=== PATIENT | female | born 1975 | race Caucasian/White ===

== ENCOUNTER 2017-01-24 21:47 | Emergency (ER) | payer OTHER ==
[~2017-01-24] VITALS: Ht 152.4 cm; Wt 58.1 kg
[2017-01-24 21:51] VITALS: TEMP 36.5; Ht 152.4 cm; Wt 58.1 kg
[2017-01-24] MEDS ORDERED: ACET-1256 PO (22:03)
[2017-01-24] MEDS ORDERED: IBUP-103 PO (22:03)
[2017-01-24] MEDS ORDERED: PENI500T2 PO (22:06)
[2017-01-24] MEDS ORDERED: HYDR-5688 PO (22:06)
--- NOTE | 2017-01-24 22:07 | EMERGENCY ROOM VISIT NOTE ---
ED Visit Note First contact with patient: 21:56 CHIEF COMPLAINT: Toothache. HISTORY OF PRESENT ILLNESS: This is a 41-year-old white female who ambulates into the complaining of dental pain. She reports a progressive dental pain for the last 4 days over the left upper molars. The pain is now steady and severe and radiates to the face. She has tried Orajel, ibuprofen and Tylenol but has had moderate relief of her discomfort but tonight the pain became severe. The patient is taking 5 200 mg ibuprofen at a time. I did financial counselor her on the appropriate dosage of ibuprofen. Currently she is complaining of pain in the area of tooth . She rates her discomfort 8/10. Her.is pain does radiate through the teeth. Her/is pain worsens with chewing and hot and cold foods. She has not identified any alleviating factors related to the pain. She denies any associated symptoms including fevers, chills, sweats, facial swelling, sore throat, difficulty swallowing, voice changes, drooling. REVIEW OF SYSTEMS: As noted above in History of Present Illness. 8 body systems were reviewed with this patient and found to be negative unless noted above otherwise. PMH: . CURRENT MEDICATION: . ALLERGIES TO MEDICATION: Patient denies. SOCIAL HISTORY: PHYSICAL EXAM: Vital Signs: Temperature 36.5 C orally; blood pressure ; heart rate ; respiratory rate . General: This is a 41-year-old year-old white female in mild distress due to pain, nontoxic appearing, afebrile and hemodynamically stable. Neurological: Awake, alert and oriented to person, place and time. Answering questions appropriately and following commands. Normal gait. Good hand eye coordination. No focal motor or sensory deficits. Skin: Warm, dry and pink. No soft tissue lesions, rashes, or trauma noted. HEENT: Atraumatic and normocephalic. Oral cavity is moist and pink. Airway is patent. Uvula is midline and no abscesses are seen. Airway is patent. Speech is normal. No drooling. No intraoral trauma is noted. There is decay and a filling in the left upper molar. It is broken. No abscesses, erythema or edema identified. No cervical or submandibular lymphadenopathy. ED COURSE: Patient is assessed as noted above. Patient is educated about his findings and instructed on her treatment plan; she verbalizes understanding and agreement with this plan. CLINIC IMPRESSION: Dental pain. Current/Historical Medications Scheduled Penicillin V Potassium (Veetids), 500 MG PO QID Scheduled PRN Acetaminophen (Tylenol), 1,000 MG PO UD PRN for Pain Hydrocodone/Acetaminophen 5MG/325MG ([place] 5MG/325MG), 1 TABLET PO Q4H PRN for Pain Ibuprofen Tab (Advil), 600-1,000 MG PO UD PRN for Pain Allergies Coded Allergies: No Known Allergies (Unverified , 01/24/17) Vital Signs Date Time Temp Pulse Resp B/P Pulse Ox O2 Delivery O2 Flow Rate FiO2 01/24/17 22:23 88 18 115/76 99 Room Air 01/24/17 21:51 36.5 90 16 118/56 99 Room Air Medications Administered Medications (Trade) Dose Ordered Sig/Deon Route Start Time Stop Time Status Last Admin Dose Admin Acetaminophen/ Hydrocodone Bitart ([place] 5/325mg Home Pack) 1 homepack UD ONCE PO 01/24/17 22:15 01/24/17 22:16 DC 01/24/17 22:18 1 HOMEPACK Penicillin V Potassium (Pen-Vk 250MG Home Pack) 1 homepack UD ONCE PO 01/24/17 22:15 01/24/17 22:16 DC 01/24/17 22:18 1 HOMEPACK Departure Information Impression Primary Impression: Dental caries Additional Impression: Pain, dental Dispostion Home / Self-Care Condition GOOD Prescriptions Penicillin V Potassium (VEETIDS) 500 Mg Tab 500 MG PO QID, #40 TAB Prov: Jenny Beaulieu PA-C 01/24/17 Hydrocodone/Acetaminophen 5MG/325MG ([place] 5MG/325MG) Tab 1 TABLET PO Q4H Y for Pain, #18 TAB For Initial Treatment Prov: Jenny Beaulieu PA-C 01/24/17 Referrals No Doctor, Assigned (PCP) Patient Instructions [facility] Additional Instructions Pen-Vee K 4 times daily for 10 days.[place] one tablet every 6 hours if needed for worse pain. Do not drink or drive while taking [place] and do not take with Tylenol. Followup with a dentist for definitive management of your tooth. Return with high fevers, worsening pain or swelling. Do not take more than 600 mg of ibuprofen every 6-8 hours Do not take more than 4 g of Tylenol in 24 hours Follow up with your dentist on Wednesday as scheduled Problem Qualifiers
[2017-01-24] MEDS ORDERED: NORCO 5/325MG HOME PACK PO ONE (22:15)
[2017-01-24] MEDS ORDERED: PENICILLIN HOME PACK 250MG (4)BTL PO ONE (22:15)
[2017-01-24 22:23] VITALS: BP 115/76; PULSE 88; O2SAT 99
== END 2017-01-24 22:24 | disposition home or self-care (01) ==
LOC: C.EDB 21:49 → C.EDD 22:24
DX: K02.9 Dental caries, unspecified (principal); K08.89 Other specified disorders of teeth and supporting structures

== ENCOUNTER 2017-08-30 12:14 | Emergency (ER) | payer OTHER ==
[~2017-08-30] VITALS: Ht 152.4 cm; Wt 57.2 kg
[~2017-08-30 12:14] MED LIST: ACET-1256 PO; IBUP-103 PO
[2017-08-30 12:20] VITALS: TEMP 36.8; Ht 152.4 cm; Wt 57.2 kg
[2017-08-30] MEDS ORDERED: IBUP-103 PO (12:38)
--- NOTE | 2017-08-30 13:15 | DIAGNOSTIC IMAGING REPORT ---
R HAND MIN 3 VIEWS ROUTINE CLINICAL HISTORY: Right hand closed in car door. 4th/5th finger injury. COMPARISON: None FINDINGS: There is an acute mildly displaced transverse fracture within the distal shaft of the distal phalanx of the right fifth finger. There is suspected subtle malalignment at the proximal interphalangeal joint of the fourth digit which may reflect mild dorsal subluxation with respect to the proximal phalanx. No additional fractures are present. Carpal bones are intact. IMPRESSION: 1. Acute mildly displaced transverse fracture of the distal phalanx of the right fifth finger. 2. Suspected mild malalignment of the proximal interphalangeal joint of the right fourth digit which suggests mild subluxation. Electronically signed by: Sunny Parker M.D. 08/30/2017 1:14 PM Dictated Date/Time: 08/30/2017 1:10 PM
[2017-08-30] MEDS ORDERED: HYDR-5688 PO (13:31)
[2017-08-30 13:47] VITALS: BP 135/83; PULSE 76; O2SAT 99
--- NOTE | 2017-08-31 07:55 | EMERGENCY ROOM VISIT NOTE ---
History First contact with patient: 12:23 Chief Complaint: FINGER PAIN Stated Complaint: INJURY TO RT HAND, 4TH/5TH DIGITS, PAIN INTO ELBOW History of Present Illness The patient is a 42 year old female who presents to the Emergency Room with complaints of pain to her right hand after closing it in a car door approximately 10 hours ago. The patient initially did not have significant pain , however as time has advanced she now has worsening pain into her fourth and fifth digits. The pain does radiate into her elbow. She is able to move the hand and does not have laceration or abrasion. The patient considers herself usually healthy, but does have an upcoming orthopedic appointment in 2 days for trigger finger release. This appointment is scheduled in [facility] as discussed with the patient lives. She is visiting locally to the area and staying with her brother. The patient rates the discomfort an increasing 8/10. She has not had relief of pain with [id number] analgesics. Review of Systems More than 10 systems were reviewed and otherwise negative with the exception of history of present illness. Past Medical/Surgical History No additional pertinent chronic medical disease Family History No pertinent family history Social History Smoking Status: Light Tobacco Smoker Occupation Status: employed Current/Historical Medications Scheduled PRN Hydrocodone/Acetaminophen 5MG/325MG ([place] 5MG/325MG), 1-2 TABLET PO Q6 PRN for Pain Ibuprofen Tab (Advil), 600-1,000 MG PO UD PRN for Pain Physical Exam Vital Signs Date Time Temp Pulse Resp B/P (MAP) Pulse Ox O2 Delivery O2 Flow Rate FiO2 08/30/17 13:47 76 18 135/83 99 Room Air 08/30/17 12:20 36.8 88 16 128/42 99 Room Air Physical Exam VITALS: Vitals are noted on the nurse's note and reviewed by myself. Vital signs stable. GENERAL: Well-developed, well-nourished, white female, who is in no acute distress and resting comfortably. Patient is cooperative with the examination. HEART: Regular rate and rhythm without murmurs gallops or rubs. LUNGS: Clear to auscultation bilaterally without wheezes, rales or rhonchi. No retractions or accessory muscle use. MUSCULOSKELETAL: Erythema and edema is appreciated over the right fourth and fifth digits. This area is diffusely tender with maximal tenderness along the distal aspect of the digits. There is no significant laceration or abrasion. The patient is able to open and close the hand, but not make a full fist. [employer] strength is 0/5. Neurovascular status appears intact. No tenderness of the wrist or elbow. Medical Decision & Procedures ER Provider Diagnostic Interpretation: R HAND MIN 3 VIEWS ROUTINE CLINICAL HISTORY: Right hand closed in car door. 4th/5th finger injury. COMPARISON: None FINDINGS: There is an acute mildly displaced transverse fracture within the distal shaft of the distal phalanx of the right fifth finger. There is suspected subtle malalignment at the proximal interphalangeal joint of the fourth digit which may reflect mild dorsal subluxation with respect to the proximal phalanx. No additional fractures are present. Carpal bones are intact. IMPRESSION: 1. Acute mildly displaced transverse fracture of the distal phalanx of the right fifth finger. 2. Suspected mild malalignment of the proximal interphalangeal joint of the right fourth digit which suggests mild subluxation. ED Course Physical exam and history were performed. Nursing notes, EMR, and Medication List were personally reviewed. Patient appears to have suffered injury to her right hand after closing the hand in a car door last night. X-ray was obtained and does show a fracture through the distal phalanx of the right fifth digit. This does correlate with the patient's tenderness and symptoms. The patient lives in [facility] and evidently has an appointment in 48 hours with her orthopedist back home for trigger finger release. The patient will be given a short course of Vicodin for pain control. She was placed in a splint. She is to keep this appointment where she can be further evaluated by her orthopedist from home. The patient was otherwise invited back to the ER with any new, worsening, or concerning symptoms. The chart was completed utilizing [employer] Speech Voice Recognition Software. Grammatical errors, random word insertions, pronoun errors, and incomplete sentences are an occasional consequence of this system due to software limitations, ambient noise, and hardware issues. Any formal questions or concerns about the content, text, or information contained within the body of this dictation should be directly addressed to the provider for clarification. . Medical Decision Differential diagnosis includes, but is not limited to: Sprain, strain, fracture , dislocation, subluxation, contusion, compartment syndrome, and others Blood Pressure Screening Patient's blood pressure: Normal blood pressure Impression Primary Impression: Fracture of finger of right hand Departure Information Dispostion Home / Self-Care Condition GOOD Prescriptions Hydrocodone/Acetaminophen 5MG/325MG ([place] 5MG/325MG) Tab 1-2 TABLET PO Q6 Y for Pain, #15 TAB For Initial Treatment Prov: Arturo Mccall PA-C 08/30/17 Forms HOME CARE DOCUMENTATION FORM, IMPORTANT VISIT INFORMATION Patient Instructions My [facility] Additional Instructions You were seen and evaluated today on an emergency basis only. This is not a substitute for, or an effort to provide, complete comprehensive medical care. It is not possible to recognize and treat all injuries or illnesses in a single emergency department visit. For this reason it is recommended that you followup with your orthopedist for ongoing care and evaluation. For baseline pain relief you may alternate ibuprofen and acetaminophen every 4 hours for pain control. Take 600 mg ibuprofen (Advil) and then 4 hours later take 1000 mg acetaminophen (Tylenol). Do not take more than 3000 mg acetaminophen in a single day. [place] (hydrocodone/acetaminophen) 5/325 mg ONE or TWO every 6 hours as needed for worsening breakthrough pain. Do not drink or drive on [place]. This medication will likely make you tired. Do not take [place] and Tylenol at the same time as both contain acetaminophen. [place] may cause constipation. You may wish to take an [id number] stool softener like Colace if this occurs. You are welcome to return to the emergency department anytime with new, worsening, or concerning symptoms.
== END 2017-08-30 13:52 | disposition home or self-care (01) ==
LOC: C.EDB 12:18 → C.EDD 13:52
DX: S62.636A Displaced fracture of distal phalanx of right little finger, initial encounter for closed fracture (principal); W23.1XXA Caught, crushed, jammed, or pinched between stationary objects, initial encounter; F17.210 Nicotine dependence, cigarettes, uncomplicated